=== PATIENT | male | born 1975 | race Two or more races ===

== ENCOUNTER 2025-05-12 17:38 | Emergency (ER) | payer OTHER ==
[~2025-05-12] VITALS: Ht 177.8 cm; Wt 108.9 kg
[2025-05-12] MEDS ORDERED: NORFLEX100MG PO (18:39)
[2025-05-12] MEDS ORDERED: DICLOFENAC SODI75 MG PO (18:39)
[2025-05-12] MEDS ORDERED: KETOROLAC TROMETHAMINE 60 MG VIAL IM ONE ×2 (19:00→19:13)
[2025-05-12] MEDS ORDERED: DEXAMETHASONE SODIUM PHOSPHATE 4 MG/ML VIAL IM ONE (19:00)
[2025-05-12] MEDS ORDERED: ORPHENADRINE CITRATE 30 MG/ML AMPUL IM ONE (19:00)
[2025-05-12] MEDS ORDERED: ORPHENADRINE CITRATE 30 MG/ML AMPUL ONE (19:12)
[2025-05-12] MEDS ORDERED: DEXAMETHASONE SODIUM PHOSPHATE 4 MG/ML VIAL ONE (19:13)
== END 2025-05-12 19:28 | disposition home or self-care (01) ==
LOC: ER 17:38
DX: M19.071 Primary osteoarthritis, right ankle and foot (principal); E11.9 Type 2 diabetes mellitus without complications; Z88.0 Allergy status to penicillin

== ENCOUNTER 2025-07-19 10:27 | Emergency (ER) | payer OTHER ==
[~2025-07-19] VITALS: Ht 177.8 cm; Wt 108.9 kg
[~2025-07-19 10:27] MED LIST: DICLOFENAC SODI75 MG PO; NORFLEX100MG PO
[2025-07-19] MEDS ORDERED: NORVASC2.5 M1 PO (10:46)
[2025-07-19] MEDS ORDERED: KETOROLAC TROMETHAMINE 60 MG VIAL IM ONE ×2 (11:15→11:39)
[2025-07-19] MEDS ORDERED: ORPHENADRINE CITRATE 30 MG/ML AMPUL IM ONE (11:15)
[2025-07-19] MEDS ORDERED: ORPHENADRINE CITRATE 30 MG/ML AMPUL ONE (11:39)
[2025-07-19] MEDS ORDERED: NORFLEX100MG PO (12:33)
== END 2025-07-19 13:32 | disposition home or self-care (01) ==
LOC: ER 10:28
DX: M25.571 Pain in right ankle and joints of right foot (principal); E11.9 Type 2 diabetes mellitus without complications; Z88.0 Allergy status to penicillin